=== PATIENT | female | born 1980 | race American Indian/Alaskan Native ===

== ENCOUNTER 2018-08-16 11:53 | Emergency (ER) | payer OTHER ==
[2018-08-16 12:06] VITALS: BP 135/60
--- NOTE | 2018-08-16 12:11 | Emergency Department Report ---
ED ENT HPI - General Chief complaint: Dental/Oral Stated complaint: MOUTH PAIN Time Seen by Provider: 08/16/18 12:03 Source: patient Mode of arrival: Ambulatory Limitations: No Limitations - History of Present Illness Initial comments: This is a 38-year-old female nontoxic well in appearance with no signs of distress presents to the ED with complaint of toothache. Patient denies any facial swelling. Denies following up with a dentist. Denies any fever, chills, headache, nausea, vomiting, chest pain or SOB. Denies any other complaints. Denies any allergies. MD complaint: tooth pain -: month(s) Location: tooth # 1 - pain here Severity: mild Severity scale (0 -10): 8 Quality: aching Consistency: constant Improves with: none Worsens with: none Context- Dental: history of dental caries, poor dental care Associated Symptoms: gum swelling, toothache. denies: fever, cough, pain with swallowing, sore throat, tinnitus, hearing loss, discharge from ear, rhinorrhea - Related Data Previous Rx's Medication Instructions Recorded Last Taken Type Acetaminophen/Codeine [Tylenol 1 tab PO Q6H PRN #12 tab 08/16/18 Unknown Rx /Codeine # 3 tab] Amoxicillin [Amoxicillin TAB] 875 mg PO BID #20 tablet 08/16/18 Unknown Rx Chlorhexidine Mouthwash [Peridex] 15 ml MM BID #1 bottle 08/16/18 Unknown Rx ED Dental HPI - General Chief complaint: Dental/Oral Stated complaint: MOUTH PAIN Time Seen by Provider: 08/16/18 12:03 Source: patient Mode of arrival: Ambulatory Limitations: No Limitations - Related Data Previous Rx's Medication Instructions Recorded Last Taken Type Acetaminophen/Codeine [Tylenol 1 tab PO Q6H PRN #12 tab 08/16/18 Unknown Rx /Codeine # 3 tab] Amoxicillin [Amoxicillin TAB] 875 mg PO BID #20 tablet 08/16/18 Unknown Rx Chlorhexidine Mouthwash [Peridex] 15 ml MM BID #1 bottle 08/16/18 Unknown Rx ED Review of Systems ROS: Stated complaint: MOUTH PAIN Other details as noted in HPI Constitutional: denies: chills, fever Eyes: denies: eye pain, eye discharge, vision change ENT: throat pain. denies: ear pain Respiratory: denies: cough, shortness of breath, wheezing Cardiovascular: denies: chest pain, palpitations Endocrine: no symptoms reported Gastrointestinal: denies: abdominal pain, nausea, diarrhea Genitourinary: denies: urgency, dysuria, discharge Musculoskeletal: denies: back pain, joint swelling, arthralgia Skin: denies: rash, lesions Neurological: denies: headache, weakness, paresthesias Psychiatric: denies: anxiety, depression Hematological/Lymphatic: denies: easy bleeding, easy bruising ED Past Medical Hx - Past Medical History Previous Medical History?: No - Surgical History Past Surgical History?: No - Medications Home Medications: Home Medications Medication Instructions Recorded Confirmed Last Taken Type Acetaminophen/Codeine [Tylenol 1 tab PO Q6H PRN #12 tab 08/16/18 Unknown Rx /Codeine # 3 tab] Amoxicillin [Amoxicillin TAB] 875 mg PO BID #20 tablet 08/16/18 Unknown Rx Chlorhexidine Mouthwash [Peridex] 15 ml MM BID #1 bottle 08/16/18 Unknown Rx ED Physical Exam - General Limitations: No Limitations General appearance: alert, in no apparent distress - Head Head exam: Present: atraumatic, normocephalic - Expanded ENT Exam Expanded Ear exam: Present: normal external inspection Mouth exam: Present: normal external inspection, drooling. Absent: trismus, muffled voice Teeth exam: Present: dental caries, fractured tooth #, dental tenderness #, gingival enlargement, other (no facial swelling. uvula midline) Throat exam: Positive: normal inspection. Negative: tonsillar erythema, tonsillomegaly, tonsillar exudate, R peritonsillar mass, L peritonsillar mass - Neck Neck exam: Present: normal inspection, full ROM. Absent: tenderness, meningismus, lymphadenopathy ED Course - Reevaluation(s) Reevaluation #1: 08/16/18 12:06 Patient is speaking in full sentences with no signs of distress noted. ED Medical Decision Making - Medical Decision Making Patient was instructed to Follow-up with a dentist doctor in 3-5 days or if symptoms worsen and continue return to emergency room as soon as possible. At time of discharge, the patient does not seem toxic or ill in appearance. No acute signs of distress noted. Patient agrees to discharge treatment plan of care. No further questions noted by the patient. Critical care attestation.: If time is entered above; I have spent that time in minutes in the direct care of this critically ill patient, excluding procedure time. ED Disposition Clinical Impression: Dental caries, Gingivitis Disposition: TO HOME OR SELFCARE Is pt being admited?: No Does the pt Need Aspirin: No Condition: Stable Instructions: Dental Caries (ED), Gingivitis (ED), Acetaminophen/Codeine (By mouth) Additional Instructions: Follow-up with a dentist doctor in 3-5 days or if symptoms worsen and continue return to emergency room as soon as possible. Prescriptions: Amoxicillin [Amoxicillin TAB] 875 mg PO BID #20 tablet Chlorhexidine Mouthwash [Peridex] 15 ml MM BID #1 bottle Acetaminophen/Codeine [Tylenol /Codeine # 3 tab] 1 tab PO Q6H PRN #12 tab PRN Reason: Pain , Severe (7-10) Referrals: PRIMARY CARE, [Referring] - 3-5 Days COLIN MERRILL MD [Staff Physician] - 3-5 Days [facility] [Outside] - 3-5 Days Forms: Work/School Release Form(ED)
== END 2018-08-16 12:20 | disposition home or self-care (01) ==
LOC: ED 11:53
DX: K02.9 Dental caries, unspecified (principal); K05.10 Chronic gingivitis, plaque induced; Z88.8 Allergy status to other drugs, medicaments and biological substances
CPT/HCPCS: 99282

== ENCOUNTER 2019-06-07 11:58 | Emergency (ER) | payer SELFPAY ==
[2019-06-07 13:36] LABS: Bacteria,Urine 1+ /HPF (Negative); Bilirubin,Urine NEG (Negative); Blood,Urine NEG (Negative); Color,Urine Yellow (Yellow); Mucus,Urine 3+ /HPF; Protein,Urine <15 mg/dL mg/dL (Negative)
[2019-06-07 13:42] LABS: Amphetamine Screen,Urine PRESUMPTIVE NEGATIVE; Benzodiazepines Screen,Urine PRESUMPTIVE NEGATIVE; Cocaine Screen,Urine PRESUMPTIVE NEGATIVE; Methadone Screen,Urine PRESUMPTIVE NEGATIVE; Opiate Screen,Urine PRESUMPTIVE NEGATIVE
[2019-06-07 13:43] LABS: Basophils # (Auto) 0.1 K/mm3 (0.0-0.1); Basophils % (Auto) 0.7 % (0.0-1.8); Eosinophils # (Auto) 0.1 K/mm3 (0.0-0.4); Eosinophils % (Auto) 1.2 % (0.0-4.3); Hematocrit 39.1 % (30.3-42.9); Hemoglobin 13.1 gm/dl (10.1-14.3); Lymphocytes # (Auto) 2.2 K/mm3 (1.2-5.4); Lymphocytes % (Auto) 27.9 % (13.4-35.0); Mean Corpuscular HGB Conc 34 % (30-34); Mean Corpuscular Volume 79 fl (79-97); Monocytes # (Auto) 0.4 K/mm3 (0.0-0.8); Monocytes % (Auto) 5.5 % (0.0-7.3); Platelet Count 162 K/mm3 (140-440); Red Blood Count 4.99 M/mm3 (3.65-5.03); Red Cell Distribution Width 14.5 % (13.2-15.2)
[2019-06-07 14:00] LABS: Cannabinoid Screen,Urine PRESUMPTIVE POSITIVE
--- NOTE | 2019-06-07 14:06 | Emergency Department Report ---
HPI - General Chief Complaint: Psych Time Seen by Provider: 06/07/19 13:04 - HPI HPI: 39-year-old female presents to the emergency department with the complaint of depression with suicidal ideations and attempt. Apparently the patient attempted it twice, once while at work and then once at home. She was found by a friend who she considers to be "mom" who says that the patient had wire wrapped around her neck and then around a pole. The patient says that if this person had not found her that she would have been "successful." She does have some mild ligature jameson around her neck but denies any difficulty with swallowing, shortness of breath or any significant neck pain at this time. She has a history of depression, bipolar disorder, PTSD. The patient has not been on psychiatric medications for the past 3 years as she says they have not been helpful to her and she was self-medicating with marijuana. The patient says that she feels despair for multiple reasons including issues with child support and something about a relationship. ED Past Medical Hx - Past Medical History Hx Psychiatric Treatment: Yes (BIPOLAR, PTSD, MINIC , DEPRESSION) - Surgical History Hx Cholecystectomy: Yes Additional Surgical History: eusebio in left leg - Social History Smoking Status: Current Every Day Smoker Substance Use Type: Alcohol, Cocaine, Marijuana - Medications Home Medications: Home Medications Medication Instructions Recorded Confirmed Last Taken Type Acetaminophen/Codeine [Tylenol 1 tab PO Q6H PRN #12 tab 08/16/18 Unknown Rx /Codeine # 3 tab] Amoxicillin [Amoxicillin TAB] 875 mg PO BID #20 tablet 08/16/18 Unknown Rx Chlorhexidine Mouthwash [Peridex] 15 ml MM BID #1 bottle 08/16/18 Unknown Rx Nitrofurantoin [place]/M-Cryst 100 mg PO Q12HR #12 capsule 06/07/19 Unknown Rx [Macrobid CAP] ED Review of Systems ROS: Stated complaint: ATTEMPTED SUICIDE Other details as noted in HPI Comment: All other systems reviewed and negative Constitutional: denies: chills, fever Eyes: denies: eye pain, vision change ENT: denies: ear pain, throat pain Respiratory: denies: cough, shortness of breath Cardiovascular: denies: chest pain, palpitations Gastrointestinal: denies: abdominal pain, vomiting Genitourinary: denies: dysuria, discharge Musculoskeletal: back pain (Chronic). denies: joint swelling Skin: other (Ligature jameson around the neck). denies: rash Neurological: denies: headache, weakness Physical Exam - Physical Exam Vital Signs: Vital Signs 06/07/19 12:13 Temperature 98.4 F Pulse Rate 91 H Respiratory 16 Rate Blood Pressure 120/82 O2 Sat by Pulse 99 Oximetry Physical Exam: GENERAL: The patient is well-developed well-nourished. HENT: Normocephalic. Atraumatic. Patient has moist mucous membranes. Oropharynx is clear. Normal voice. EYES: Extraocular motions are intact. NECK: Supple. Trachea is midline. There are ligature jameson around the neck but no swelling. CHEST/LUNGS: Clear to auscultation. There is no respiratory distress noted. HEART/CARDIOVASCULAR: Regular. There is no tachycardia. There is no murmur. ABDOMEN: Abdomen is soft, nontender. Patient has normal bowel sounds. There is no abdominal distention. SKIN: Skin is warm and dry. NEURO: The patient is awake, alert, and oriented. The patient is cooperative. The patient has no focal neurologic deficits. MUSCULOSKELETAL: There is no tenderness or deformity. There is no evidence of acute injury. ED Course Vital Signs 06/07/19 12:13 Temperature 98.4 F Pulse Rate 91 H Respiratory 16 Rate Blood Pressure 120/82 O2 Sat by Pulse 99 Oximetry ED Medical Decision Making - Lab Data Result diagrams: 06/07/19 13:30 06/07/19 13:30 - Medical Decision Making This patient presents with depression, suicidal ideations and a suicide attempt by trying to hang herself by wire. Allegedly the patient would have been successful if her friend had not found her and cut the wire. The patient does have some ligature jameson around her neck but there are no obvious signs of internal trauma as the patient has a normal voice, no signs of any swelling, no difficulty swallowing or any shortness of breath. An x-ray was done of the cervical spine that does not show any fracture, subluxation, or any acute process. The rest of the patient's labs were mostly unremarkable except for a mild urinary tract infection that will be treated with Macrobid, and a UDS positive for marijuana, which we already knew about. The patient has been made a 1013 secondary to the suicide attempt and ongoing suicidal ideations and depression. She appears medically cleared for psychiatric placement. - Differential Diagnosis Bipolar disorder, schizophrenia, schizoaffective, substance abuse Critical Care Time: No Critical care attestation.: If time is entered above; I have spent that time in minutes in the direct care of this critically ill patient, excluding procedure time. ED Disposition Clinical Impression: Suicidal ideations Suicide attempt by hanging Qualifiers: Encounter type: initial encounter Qualified Code(s): T71.162A - Asphyxiation due to hanging, intentional self-harm, initial encounter Depression Qualifiers: Depression Type: unspecified Qualified Code(s): F32.9 - Major depressive disorder, single episode, unspecified UTI (urinary tract infection) Qualifiers: Urinary tract infection type: acute cystitis Hematuria presence: without hematuria Qualified Code(s): N30.00 - Acute cystitis without hematuria Disposition: DC/TX-65 PSY HOSP/PSY UNIT Is pt being admited?: No Condition: Stable Prescriptions: Nitrofurantoin [place]/M-Cryst [Macrobid CAP] 100 mg PO Q12HR #12 capsule Time of Disposition: 17:02
[2019-06-07 14:10] LABS: BUN/Creatinine Ratio 15; Blood Urea Nitrogen 9 mg/dL (7-17); Calcium 9.4 mg/dL (8.4-10.2); Hemolysis Index 10
--- NOTE | 2019-06-07 14:48 | XRay Report ---
Cervical spine-4 views INDICATION: attempted suicide by hanging with wire upt. COMPARISON: None. IMPRESSION: Cervical spine is not well visualized below the level of C6 on the lateral view. Spinal alignment is normal to this level. No significant discogenic DJD or facet arthropathy. No acute oss eous or soft tissue abnormality. Incidental note made of innumerable nodular densities throughout th e lungs which appear to have increased density as seen with calcified granulomata. Correlate with any prior imaging. Signer Name: Alexis Espitia MD Signed: 06/07/2019 2:43 PM Workstation Name: [id number]
[2019-06-07] MEDS: NITROFURANTOIN MONOHYD/M-CRYST 100 MG CAP PO SCH ×2 (15:58→23:30)
[2019-06-08] MEDS ORDERED: ALPRAZolam 1 MG TAB ONE (04:45)
[2019-06-08] MEDS ORDERED: ALPRAZolam 1 MG TAB PO ONE (04:45)
[2019-06-08] MEDS: NITROFURANTOIN MONOHYD/M-CRYST 100 MG CAP PO SCH ×2 (10:19→21:40)
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
[2019-06-08] MEDS: QUEtiapine 100 MG TAB PO SCH (21:40)
[2019-06-08] MEDS: traZODone 50 MG TAB PO SCH (21:40)
[2019-06-09] MEDS: NITROFURANTOIN MONOHYD/M-CRYST 100 MG CAP PO SCH ×2 (10:21→21:56)
[2019-06-09] MEDS: lamoTRIgine 25 MG TAB PO SCH (10:21)
--- NOTE | 2019-06-09 13:53 | Progress Note ---
Subjective - Reason for Consult Consult date: 06/09/19 Reason for consult: psychiatric assessment - Chief Complaint Chief complaint: The patient's medical record was reviewed and the patient's progress was discussed with the nursing staff. The nurse note states.pt resting quietly on recliner, resp even and non labored, no acute distress noted, no complaints of voiced, no behaviors or s/s of self harm noted, ambulates as needed to restroom without difficulty. During my interview with the patient this morning, the patient was in room alert oriented x3 able to make needs known dressed appropriate for the occasion maintains eye contact. The patient reports intermittent suicidal ideation at times without a plan, and last felt so this morning the patient contracts for safety. She denies homicidal ideation. She reports that she sleeps on and off but her appetite is good. She reports her depression is a 8 out of 10 stated, "I am severely depressed". She reports her mood as better. She denies visual or auditory hallucinations. Patient stated, I just need some help to get better" ROS: Constitutional: Negative for weight loss ENT: Negative for stridor Respiratory: Negative for cough or hemoptysis All other systems reviewed and are negative MENTAL STATUS General Appearance and Behavior: age appropriate, good eye contact, cooperative with questioning and polite Cooperation: Cooperative Psychomotor Behavior: within normal limits Mood: sad Affect and affective range: Congruent with stated mood Thought Process: Fluent/Logical and Goal-directed Thought Content: Within reality Speech: Normal volume and Regular rate and rhythm Intellectual Functioning Average Suicidal Ideation: yes Homicidal Ideation: Denies HI Impulse Control: intact Insight and Judgment: normal insight and judgment Memory: Normal Attention: Normal Orientation: alert and oriented RECOMMENDATIONS MEDICATIONS: continue medication on chart Risks, benefits and alternatives of medications discussed with the patient, questions answered and consent obtained from patient. PSYCHOTHERAPY: Supportive psychotherapy provided MEDICAL: Per primary team DELIRIUM PRECAUTIONS: Please re-orient patient frequently, keep lights on during the day, and minimize benzodiazepines and opiates as these medications could worsen patient's confusion. 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
[2019-06-09] MEDS: QUEtiapine 100 MG TAB PO SCH (21:56)
[2019-06-09] MEDS: traZODone 50 MG TAB PO SCH (21:56)
[2019-06-10] MEDS: lamoTRIgine 25 MG TAB PO SCH (10:34)
[2019-06-10] MEDS: NITROFURANTOIN MONOHYD/M-CRYST 100 MG CAP PO SCH ×2 (10:35→21:32)
--- NOTE | 2019-06-10 13:54 | Progress Note ---
Subjective - Reason for Consult Consult date: 06/10/19 Reason for consult: psychiatric assessment - Chief Complaint Chief complaint: The patient's medical record was reviewed and the patient's progress was discussed with the nursing staff. The nurse note states.pt resting quietly on recliner, resp even and non labored, no acute distress noted, no complaints of voiced, no behaviors or s/s of self harm noted, ambulates as needed to restroom without difficulty. During my interview with the patient this morning, the patient was in room alert oriented x3 able to make needs known dressed appropriate for the occasion maintains eye contact. When asked how she was doing patient stated, "I am mad and hungry since have been here have not been placed and all the people are being placed". The process was explained to the patient, the patient does report that she is eating and sleeping well she does report suicidal ideation without a plan at this time. The patient denies visual or auditory hallucinations. The patient appears anxious at this time. She reported her mood as not good. ROS: Constitutional: Negative for weight loss ENT: Negative for stridor Respiratory: Negative for cough or hemoptysis All other systems reviewed and are negative MENTAL STATUS General Appearance and Behavior: age appropriate, good eye contact, cooperative with questioning and polite Cooperation: Cooperative Psychomotor Behavior: within normal limits Mood: "Not good" Affect and affective range: Congruent with stated mood Thought Process: Fluent/Logical and Goal-directed Thought Content: Within reality Speech: Normal volume and Regular rate and rhythm Intellectual Functioning Average Suicidal Ideation: yes Homicidal Ideation: Denies HI Impulse Control: intact Insight and Judgment: normal insight and judgment Memory: Normal Attention: Normal Orientation: alert and oriented RECOMMENDATIONS MEDICATIONS: Vistaril 50 mg p.o. as needed for anxiety Risks, benefits and alternatives of medications discussed with the patient, questions answered and consent obtained from patient. PSYCHOTHERAPY: Supportive psychotherapy provided MEDICAL: Per primary team DELIRIUM PRECAUTIONS: Please re-orient patient frequently, keep lights on during the day, and minimize benzodiazepines and opiates as these medications could worsen patient's confusion. 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
[2019-06-10] MEDS ORDERED: DOCUSATE SODIUM 100 MG CAP ONE (18:14)
[2019-06-10] MEDS ORDERED: DOCUSATE SODIUM 100 MG CAP PO ONE (18:15)
[2019-06-10] MEDS: traZODone 50 MG TAB PO SCH (21:32)
[2019-06-10] MEDS: QUEtiapine 100 MG TAB PO SCH (21:33)
[2019-06-11] MEDS ORDERED: POLYETHYLENE GLYCOL 3350 17 GM POWDER PO ONE (08:39)
[2019-06-11 10:04] VITALS: BP 90/48
[2019-06-11] MEDS: NITROFURANTOIN MONOHYD/M-CRYST 100 MG CAP PO SCH (10:43)
[2019-06-11] MEDS: lamoTRIgine 25 MG TAB PO SCH (10:43)
== END 2019-06-11 11:19 ==
LOC: EEVIPCON 11:58 → ED 11:58
DX: T71.162A Asphyxiation due to hanging, intentional self-harm, initial encounter (principal); F32.9 Major depressive disorder, single episode, unspecified; N39.0 Urinary tract infection, site not specified; R45.851 Suicidal ideations; F17.200 Nicotine dependence, unspecified, uncomplicated; F12.10 Cannabis abuse, uncomplicated; F14.10 Cocaine abuse, uncomplicated
CPT/HCPCS: 36415; 72040; 80048; 80307; 80320; 81001; 84703; 85025; 87086; G0480; Q0177